=== PATIENT | female | born 1960 | race Caucasian/White ===

== ENCOUNTER 2017-03-08 16:49 | Emergency (ER) | payer OTHER ==
[~2017-03-08 16:49] MED LIST: ASPIRIN LOW STR81 MG PO; CINNAMON500 MG; CIPRO500 MG PO; CLARITIN10 MG; CORGARD40 MG; CPAP; ECOTRIN81 MG; ELAVIL10 MG; ESTRACE0.5 M2 PO; FENOFIBRATE160 MG PO; FISH OIL 1,0001 CA; FISH OIL 1,2001 CAP PO; FLONASE ALLERG9.9 ML; FLUOXETINE HCL40 M1 PO; GLUCOPHAGE1000 M1 PO; GLUCOTROL5 M1 PO; LEVAQUIN500 MG PO; MOBIC7.5 M2 PO; MULTIVITAMIN1 TAB; NABUMETONE500 MG; NITROFURANTOIN100 M; NORCO 5-325 TA1 EACH PO; NORFLEX100 MG PO; OMEGA 3-6-9 11200 MG PO; PROAIR HFA8.5 GM INH; PROZAC20 MG; TOPROL XL50 M1 PO; WOMENS MULTIPLE1 TAB PO; ZESTRIL2.5 M3 PO; ZYRTEC10 M7 PO
[2017-03-08 17:52] LABS: BASO % 0.5 % (0-2); BASO ABSOLUTE COUNT 0.1 tho/cmm (0.0-0.2); EOS % 4.3 % (0-7); EOSINOPHIL ABSOLUTE COUNT 0.4 tho/cmm (0.0-0.7); HCT-HEMATOCRIT 42.3 % (34.0-49.0); HGB-HEMOGLOBIN 14.4 gm/dl (12.0-15.5); IMMATURE GRANULOCYTES ABSOLUTE 0.03 tho/cmm (0-0.03); IMMATURE GRANULOCYTES PERCENT 0.3 % (0-0.3); LYMPH % 31.8 % (20-45); LYMPH ABSOLUTE COUNT 3.2 tho/cmm (0.8-4.5); MCH (MEAN CORPUSCULAR HGB) 29.4 pg (28.0-32.0); MCV (MEAN CELL VOLUME) 86.3 fl (82.0-96.0); MEAN PLATELET VOLUME 9.7 cmc (9.4-12.4); MONO % 6.9 % (0-12); MONOCYTE ABSOLUTE COUNT 0.7 tho/cmm (0.0-1.2); NEUTROPHIL ABSOLUTE COUNT 5.6 tho/cmm (1.6-8.0); NEUTROPHIL-AUTOMATED 5.6 tho/cmm (1.6-8.0); NEUTROPHILS % 56.2 % (40-80); PLATELET COUNT 207 tho/cmm (150-450); RED CELL DISTRIBUTION WIDTH 12.7 % (12.4-16.4)
[2017-03-08 18:07] LABS: ALB/GLOB RATIO 0.8 (0.8-2.0); ALBUMIN 2.9 g/dl (3.5-5.0); ALKALINE PHOSPHATASE 88 U/L (33-138); ALT/SGPT 22 U/L (12-78); ANION GAP 14 mmol/L (0-20); AST/SGOT 14 U/L (10-40); BILIRUBIN,TOTAL 0.4 mg/dl (0-1.5); BLOOD UREA NITROGEN 15 mg/dl (6-24); CALCIUM 8.9 mg/dl (8.5-10.5); CARBON DIOXIDE-VENOUS 26 mmol/L (22-32); CHLORIDE 104 mmol/l (96-110); CREATININE 0.69 mg/dl (0.50-1.10); GLUCOSE 133 mg/dL (70-110); LIPASE 180 U/L (73-393); POTASSIUM 3.8 mmol/L (3.7-5.1); SODIUM 140 mmol/L (135-145); eGFR VALUE FOR BLACK >90 mL/Min
[2017-03-08 18:51] LABS: URINE BILIRUBIN NEGATIVE (NEG); URINE BLOOD MODERATE (NEG); URINE GLUCOSE (UA) NEGATIVE (NEG); URINE KETONE SMALL (NEG); URINE LEUKOCYTE ESTERASE POSITIVE (NEG); URINE NITRITE NEGATIVE (NEG); URINE PROTEIN NEGATIVE (NEG); URINE SPECIFIC GRAVITY 1.025 (1.003-1.030)
[2017-03-08 18:53] LABS: URINE APPEARANCE HAZY; URINE COLOR YELLOW
[2017-03-08 19:00] LABS: URINE BACTERIA 1+; URINE MUCUS 1+; URINE RBC 0-3 /[HPF] (0-5)
[2017-03-08] MEDS ORDERED: NORCO 5-325 TA1 EACH PO (19:35)
== END 2017-03-08 19:43 ==
LOC: EDMED 16:49
PROVIDERS: Emergency Medicine
DX: R10.32 Left lower quadrant pain (principal); R11.0 Nausea; R19.7 Diarrhea, unspecified; I10 Essential (primary) hypertension; E11.9 Type 2 diabetes mellitus without complications; Z90.710 Acquired absence of both cervix and uterus; Z90.49 Acquired absence of other specified parts of digestive tract; Z98.890 Other specified postprocedural states; Z79.899 Other long term (current) drug therapy
CPT/HCPCS: J1170; J2405; Q9967